=== PATIENT | male | born 1995 | race Caucasian/White ===

== ENCOUNTER 2021-01-07 10:16 | Emergency (ER) | payer BC, SELFPAY ==
[2021-01-07 10:17] VITALS: BP 130/78; PULSE 105; RESP 18; TEMP 36.2; O2SAT 97; BMI 32.1
[2021-01-07 10:19] VITALS: BP 130/78; PULSE 106; PULSE 99; RESP 18; TEMP 36.2; O2SAT 97
--- NOTE | 2021-01-07 10:37 | RAD_ITS ---
STUDY: X-RAY - RIGHT ANKLE REASON FOR EXAM: Male, 25 years old. Injury/Pain TECHNIQUE: 6 view(s) of the ankle. COMPARISON: None. FINDINGS: Normal visualized distal tibia and fibula. Normal medial and lateral malleoli. Normal tibiotalar articulation and ankle mortise. Normal visualized talus and calcaneus. The visualized subtalar, talonavicular, calcaneocuboid and tarsal articulations are normal. Medial soft tissue is edematous. RAD/Ankle min 3 Views IMPRESSION: Normal osseous ankle, no osseous injury. Medial soft tissue edema. Electronically Signed: Boby Adame MD at 11:23 EST Tel , Service support ,
--- NOTE | 2021-01-07 10:39 | ED.VIS.LOWEX ---
HPI History of Present Illness HPI Narrative: Patient presents with right ankle pain that has been getting worse over the past 3 days. Patient states it is gradually getting worse. Patient denies any trauma or injury. Patient describes his pain as sharp. Patient states pain is worse with weightbearing and better with rest. Patient denies any paresthesias or weakness. Patient denies any fevers or chills. Patient admits to some redness over the lateral aspect of the right ankle. Chief Complaint: Lower Extremity Injury Informant: patient Onset/Context/Timing Onset: Days (3) Context: Gradual Onset Timing: Continuous Quality of Pain: Sharp Location: Lateral right ankle Worsened by: Weightbearing Relieved by: Rest Associated Symptoms Associated Symptoms: Negative for Parasthesia, Weakness and Loss of Funtion PFSH PFSH Medical History no medical history no medical history Home Medications cephalexin 500 mg PO Q6 #40 capsule 01/07/21 [Rx Last Taken Unknown] Allergy/AdvReac Type Severity Reaction Status Date / Time No Known Allergies Allergy Verified 01/07/21 10:17 Surgical History no surgical history no surgical history Social History Smoking Status: Never smoker ROS ROS ED Constitutional Constitutional ED: Denies chills or fever(s) Eyes Eyes: Denies blurry vision or change in vision ENT ENT ED: Denies rhinorrhea or sore throat Cardiovascular Cardiovascular: Denies chest pain or palpitations Respiratory/Chest Respiratory/Chest: Denies cough or dyspnea Gastrointestinal Gastrointestinal: Denies nausea or vomiting Genitourinary Genitourinary ED: Denies dysuria or hematuria Musculoskeletal Musculoskeletal: Denies back pain or neck pain Integumentary Denies abscess or rash Neurologic Neurologic: Denies headache(s) or weakness Allergic/Immunologic Allergic/Immunologic ED: Denies mouth swelling or urticaria EXAM Physical Exam Const Vital Signs: 01/07/21 10:17 01/07/21 10:19 Temperature 97.1 F L 97.1 F L Temperature Source Temporal Temporal Pulse Rate 105 H 99 Respiratory Rate 18 18 Blood Pressure 130/78 H 130/78 H Blood Pressure Mean 95 95 Pulse Ox 97 97 Oxygen Delivery Method Room Air Room Air Positive well nourished and well developed General Appearance ED: well developed HEENT Reports moist mucous membranes Neck full ROM Extremity Extremity Narrative: There is some mild tenderness over the lateral aspect of the right ankle distal to the lateral malleolus. There is some mild erythema over this area. There is mild warmth. There is no deformity. There is no ecchymosis. There is no edema. Range of motion was slightly limited in all motions of the right ankle secondary to pain. There is a strong pedal pulse noted. Capillary refill is less than 2 seconds in all digits. Sensation was intact to light touch in all digits. Neuro oriented x3, CN's II-XII intact bilaterally, moves all extremities and no sensory deficits noted Sensorium / Orientation: alert and oriented to person Motor Exam: strength 5/5 throughout Skin Skin Narrative: There is some mild erythema and warmth over the lateral aspect of the right ankle. There is no petechia noted. There is no evidence of any abscess formation. There is no induration. MDM MDM MDM Narrative Medical decision making narrative: CBC was within normal limits. X-rays of the right ankle were obtained. There are 3 views. On my interpretation, there is no acute fracture. There is no soft tissue swelling. There is no dislocation. There is no evidence of osteomyelitis. Radiologist also interpreted the x-rays and agrees. Patient was given a dose of Keflex here. Patient was given a prescription for Keflex. Patient was instructed to keep the ankle elevated. Patient was instructed to take Tylenol or ibuprofen as needed for pain. Patient was instructed to follow-up with his primary care physician in 5 to 7 days. Patient understood and was agreeable with the plan. All questions were answered. Lab Data Labs: Laboratory Results - last 24 hr 01/07/21 11:00 WBC 6.1 RBC 5.07 Hgb 14.2 Hct 41.8 MCV 82.4 MCH 28.0 MCHC 34.0 RDW Std Deviation 37.3 RDW Coeff of Boy 12.3 Plt Count 198 MPV 10.0 Immature Gran % (Auto) 0.500 Neut % (Auto) 57.0 Lymph % (Auto) 25.5 [place] % (Auto) 11.5 H Eos % (Auto) 4.8 Baso % (Auto) 0.7 Absolute Neuts (auto) 3.5 Absolute Lymphs (auto) 1.55 Nucleated RBC % 0 Radiography Diagnostic Testing: Clinical Impression(s) from Imaging Studies Ankle X-Ray 01/07/21 10:37 IMPRESSION: Normal osseous ankle, no osseous injury. Medial soft tissue edema. Electronically Signed: Boby Adame MD at 11:23 EST Tel , Service support , Discharge Plan Triage Chief Complaint: Lower Extremity Injury ED Provider: Chau Matos Dx/Rx/DC Orders Clinical Impression: Cellulitis of right ankle Instructions: ED Cellulitis Prescriptions: New cephalexin [cephalexin] 500 MG capsule 500 mg PO Q6 Qty: 40 RF: 0 Primary Care Provider: Kely Mcduffie Referrals: Kely Mcduffie MD [Primary Care Provider] - 3-5 Days Disposition Disposition: Home, Self Care
[2021-01-07 11:09] LABS: Absolute Lymphocyte Count 1.55 X10^3/uL (0.83-4.51); Absolute Neutrophil Count 3.5 X10^3/uL (2.0-7.7); Basophil# 0.04 X10^3/uL; Basophil% 0.7 % (0-1); Eosinophil# 0.29 X10^3/uL; Eosinophils% 4.8 % (0-5); Hematocrit 41.8 % (40-54); Hemoglobin 14.2 g/dL (13.0-16.5); Lymphocyte # 1.55 X10^3/ul (0.83-4.51); Lymphocyte % 25.5 % (19-41); Mean Corpuscular Volume 82.4 fL (80-94); Monocyte% 11.5 % (0-10); NRBC Flagged by Analyzer 0 % (0-5); Neutrophil # 3.48 X10^3/uL (2.7-7.7); Platelet Count 198 K/mm3 (150-450); RBC Distribution Width CV 12.3 % (11.6-14.6); RBC Distribution Width SD 37.3 fl (35.1-43.9); Red Blood Count 5.07 M/mm3 (4.6-6.2); White Blood Count 6.1 K/mm3 (4.4-11.0)
[2021-01-07] MEDS: Cephalexin 500 MG Capsule PO (11:35)
[2021-01-07 11:40] VITALS: RESP 17
== END 2021-01-07 11:40 | disposition home or self-care (01) ==
LOC: ED 11:51
PROVIDERS: Emergency Provider Emergency Medicine; PCP Family Medicine
DX: L03.115 Cellulitis of right lower limb (principal)
CPT/HCPCS: 36415; 73610; 85025; 99283

== ENCOUNTER → 2021-07-02 | Outpatient (CLI) | payer BC, SELFPAY ==
[2021-07-02 18:43] LABS: ALB/GLOB Ratio 1.3 RATIO (0.9-2.4); AST(SGOT) 23 U/L (15-37); Alanine Aminotransfer ALT/SGPT 38 U/L (16-61); Albumin, Serum 4.4 g/dL (3.2-5.0); Alkaline Phosphatase 58 U/L (45-117); Anion Gap 7 (5-15); BUN 16 mg/dL (7-18); BUN/Creat Ratio 14.7 RATIO (10-20); Chloride 105 mmol/L (98-107); Cholesterol 201 mg/dL (200); Creatinine, Serum 1.09 mg/dL (0.70-1.30); EST Glomerular Filtration Rate 88 mL/min (>60); Est Glom Filt Rate - Afr Amer 106 mL/min (>60); Globulin 3.3 g/dL (2.2-4.2); Glucose 94 mg/dL (74-106); High Density Lipoprotein 50 mg/dL; Potassium 3.8 mmol/L (3.5-5.1); Protein, Total 7.7 g/dL (6.4-8.2); Sodium Level 140 mmol/L (136-145); Thyroid Stim Hormone (TSH) 4.29 uIU/mL (0.358-3.74); Triglycerides 86 mg/dL; Very Low Density Lipoprotein 17 mg/dL (5-40)
== END | disposition home or self-care (01) ==
LOC: MTLAB 16:53
PROVIDERS: PCP Family Medicine; Referring Provider Family Medicine; Visit Provider Family Medicine
DX: Z00.00 Encounter for general adult medical examination without abnormal findings (principal)
CPT/HCPCS: 36415; 80053; 80061; 84443

== ENCOUNTER → 2022-04-10 | Outpatient (CLI) | payer BC, SELFPAY ==
[2022-04-10 15:44] LABS: T4 Total, Thyroxin 10.1 ug/dL (4.5-12.1); Thyroid Stim Hormone (TSH) 1.39 uIU/mL (0.358-3.74)
== END | disposition home or self-care (01) ==
PROVIDERS: PCP Family Medicine; Referring Provider Family Medicine; Visit Provider Family Medicine
DX: E03.9 Hypothyroidism, unspecified (principal)
CPT/HCPCS: 36415; 84436; 84443